=== PATIENT | female | born 1955 | race Caucasian/White ===

== ENCOUNTER 2022-03-31 12:31 | Outpatient (CLI) | payer MEDICARE ==
[~2022-03-31 12:31] MED LIST: Magnevist 469MG/ML 20 ML VIAL ONE
[2022-03-31 13:13] LABS: Estimated GFR-MDRD - POC Greater than 90
== END 2022-03-31 12:32 | disposition home or self-care (01) ==
LOC: CSHMRI 12:31
PROVIDERS: ATTEND Psychiatry & Neurology Neurology
DX: G35 Multiple sclerosis (principal); M47.814 Spondylosis without myelopathy or radiculopathy, thoracic region; E23.6 Other disorders of pituitary gland
CPT/HCPCS: 70553; 72156; 72157; 82565